=== PATIENT | male | born 1940 | race Caucasian/White ===

== ENCOUNTER → 2016-04-08 | Outpatient (CLI) | payer MEDICARE | END | disposition home or self-care (01) | LOC: PCVCCLINIC 14:00 | PROVIDERS: ATTEND Internal Medicine Cardiovascular Disease | DX: I48.91 Unspecified atrial fibrillation (principal); R06.00 Dyspnea, unspecified; I25.10 Atherosclerotic heart disease of native coronary artery without angina pectoris; E78.00 Pure hypercholesterolemia, unspecified; I10 Essential (primary) hypertension | CPT/HCPCS: 80061; 93005; G0463 ==

== ENCOUNTER → 2016-04-09 | Outpatient (CLI) | payer MEDICARE | END | disposition home or self-care (01) | LOC: PCVCIMAG 09:01 | PROVIDERS: ATTEND Internal Medicine Cardiovascular Disease | DX: I10 Essential (primary) hypertension (principal) | CPT/HCPCS: 76770; 93975 ==

== ENCOUNTER → 2016-10-08 | Outpatient (CLI) | payer BC, MEDICARE ==
--- NOTE | 2016-10-08 14:56 | PCVCIMAG ---
APPROVED REPORT Study performed: 10/08/2016 10:46:12 EXAM: Comprehensive 2D, Doppler, and color-flow Echocardiogram Patient Location: Echo lab Status: routine Other Information Study Quality: Adequate Indications Atrial Fibrillation Dyspnea CAD 2D Dimensions LVEF(%): 58.99 (>50%) IVSd: 12.86 (7-11mm)LVOT Diam: 22.31 (18-24mm) LVDd: 51.39 mm PWd: 12.08 (7-11mm) LVDs: 35.23 (25-40mm) Left Atrium: 56.54 (27-40mm) Aortic Root: 36.53 mm LV Single Plane 4CH: 51.75 % LV Single Plane 2CH: 64.20 %Hwang's LVEF: 57.97 % Biplane EF: 56.0 % Volumes Left Atrial Volume (Systole) Single Plane 4CH: 137.99 mLSingle Plane 2CH: 143.63 mL LA ESV Index: 74.00 mL/m2 Aortic Valve AoV Peak Kumar.: 1.77 m/s AO Peak Gr.: 12.53 mmHgLVOT Max P.84 mmHg LVOT Max V: 0.84 m/s NORA Vmax: 1.86 cm2 Mitral Valve MV E Max Kumar.: 1.60 m/s Pulmonary Valve PV Peak Kumar.: 0.87 m/sPV Peak Gr.: 3.06 mmHg Tricuspid Valve TR Peak Kumar.: 2.70 m/s TR Peak Gr.: 29.32 mmHg Left Ventricle The left ventricle is normal size. There is normal LV segmental wall motion. Mild concentric left ventricular hypertrophy. Left ventricular systolic function is normal. The left ventricular ejection fraction is within the normal range. LVEF is >55%. This study is not technically sufficient to allow evaluation of the LV diastolic function due to atrial fibrillation. Right Ventricle The right ventricle is normal size. The right ventricular systolic function is normal. Atria Left atrium is severely dilated. Right atrium is severely dilated. Aortic Valve The Aortic valve is moderately sclerotic. No aortic regurgitation is present. There is no aortic valvular stenosis. Mitral Valve Bi-leaflet mitral valve prolapse. Moderate mitral regurgitation. There is normal mitral valve excursion. Tricuspid Valve The tricuspid valve is normal in structure. Mild to moderate tricuspid regurgitation with PAP of 40 mmHg. Pulmonic Valve The pulmonary valve is normal in structure. Mild pulmonic regurgitation. Great Vessels The aortic root is normal in size. IVC is normal in size and collapses with >50% inspiration Pericardium There is no pericardial effusion. <Conclusion> The left ventricle is normal size. Mild concentric left ventricular hypertrophy. Left ventricular systolic function is normal. The left ventricular ejection fraction is within the normal range. This study is not technically sufficient to allow evaluation of the LV diastolic function due to atrial fibrillation. The right ventricle is normal size. Left atrium is severely dilated. Right atrium is severely dilated. The Aortic valve is moderately sclerotic. Moderate mitral regurgitation. Mild to moderate tricuspid regurgitation with PAP of 40 mmHg. Bi-leaflet mitral valve prolapse. There is no pericardial effusion.
== END | disposition home or self-care (01) ==
LOC: PCVCIMAG 10:38
PROVIDERS: ATTEND Internal Medicine Cardiovascular Disease
DX: I34.0 Nonrheumatic mitral (valve) insufficiency (principal); I07.1 Rheumatic tricuspid insufficiency; I37.1 Nonrheumatic pulmonary valve insufficiency; I48.91 Unspecified atrial fibrillation; I25.10 Atherosclerotic heart disease of native coronary artery without angina pectoris; I10 Essential (primary) hypertension; E78.5 Hyperlipidemia, unspecified; I70.0 Atherosclerosis of aorta; N18.3 Chronic kidney disease, stage 3 (moderate); K21.9 Gastro-esophageal reflux disease without esophagitis; M81.0 Age-related osteoporosis without current pathological fracture; Z79.899 Other long term (current) drug therapy; Z88.0 Allergy status to penicillin; Z88.1 Allergy status to other antibiotic agents
CPT/HCPCS: 80061; 93005; 93306; G0463

== ENCOUNTER → 2017-06-11 | Outpatient (CLI) | payer BC | END | disposition home or self-care (01) | LOC: PCVCCLINIC 13:21 | DX: I25.10 Atherosclerotic heart disease of native coronary artery without angina pectoris (principal); I48.91 Unspecified atrial fibrillation; E78.00 Pure hypercholesterolemia, unspecified; I12.9 Hypertensive chronic kidney disease with stage 1 through stage 4 chronic kidney disease, or unspecified chronic kidney disease; N18.9 Chronic kidney disease, unspecified; K21.9 Gastro-esophageal reflux disease without esophagitis; I51.7 Cardiomegaly; I34.0 Nonrheumatic mitral (valve) insufficiency; R94.31 Abnormal electrocardiogram [ECG] [EKG]; Z79.899 Other long term (current) drug therapy; Z88.0 Allergy status to penicillin | CPT/HCPCS: 80061; 93005; G0463 ==

== ENCOUNTER → 2017-12-12 | Outpatient (CLI) | payer BC ==
--- NOTE | 2017-12-12 14:23 | PCVCIMAG ---
APPROVED REPORT Study performed: 12/12/2017 12:38:03 EXAM: Comprehensive 2D, Doppler, and color-flow Echocardiogram Patient Location: Echo lab Status: routine BSA: 2.08 HR: 55 bpmBP: 130/70 mmHg Rhythm: Atrial Fibrillation Other Information Study Quality: Adequate Indications Mitral Valve Disease Mitral Valve Prolapse Atrial Fibrillation 2D Dimensions IVSd: 10.33 (7-11mm)LVOT Diam: 21.30 (18-24mm) LVDd: 51.68 mm PWd: 10.02 (7-11mm) LVDs: 36.54 (25-40mm) Left Atrium: 46.68 (27-40mm) Aortic Root: 35.21 mm LV Single Plane 4CH: 54.48 % LV Single Plane 2CH: 56.82 % Biplane EF: 53.5 % Volumes Left Atrial Volume (Systole) Single Plane 4CH: 135.83 mLSingle Plane 2CH: 149.03 mL LA ESV Index: 70.00 mL/m2 Aortic Valve AoV Peak Kumar.: 2.29 m/s AO Peak Gr.: 20.63 mmHgLVOT Max P.67 mmHg AO Mean Gr.: 10.28 mmHgLVOT Mean P.58 mmHg AO V2 Mean: 1.48 m/sLVOT Max V: 1.04 m/s AO V2 VTI: 50.39 cmLVOT Mean V: 0.77 m/s NORA (VTI): 1.91 [id number] V1 VTI: 26.98 cm NORA Vmax: 1.62 cm2 SV (LVOT): 96.07 mL Mitral Valve MV Peak Gr.: 13.22 mmHg MV Mean Gr.: 3.30 mmHg MV Max Kumar.: 1.82 m/s MV Mean Kumar.: 0.76 m/s MV VTI: 480.87 mm MVA VTI: 199.77 mm2 MV PHT: 130.88 ms MVA (PHT): 1.68 cm2 Pulmonary Valve PV Peak Kumar.: 0.86 m/sPV Peak Gr.: 3.00 mmHg Tricuspid Valve TR Peak Kumar.: 3.19 m/s TR Peak Gr.: 40.88 mmHg Left Ventricle The left ventricle is normal size. There is normal LV segmental wall motion. There is normal left ventricular wall thickness. Left ventricular systolic function is normal. The left ventricular ejection fraction is within the normal range. LVEF is 55%. This study is not technically sufficient to allow evaluation of the LV diastolic function due to atrial fibrillation. Right Ventricle The right ventricle is normal size. The right ventricular systolic function is normal. Atria Left atrium is severely dilated. Right atrium is severely dilated. Aortic Valve The aortic valve is moderately calcified. No aortic regurgitation is present. There is mild valvular aortic stenosis. Calculated aortic valve area is 1.6 cm2 with maximum pressure gradient of 21 mmHg and mean pressure gradient of 10 mmHg. Mitral Valve Mitral valve prolapse present with moderate mitral annular calcification. Moderate mitral regurgitation. No evidence of mitral valve stenosis. Tricuspid Valve The tricuspid valve is normal in structure. Moderate tricuspid regurgitation with PAP of 51 mmHg. Pulmonic Valve The pulmonary valve is normal in structure. Mild pulmonic regurgitation. Great Vessels The aortic root is normal in size. IVC is normal in size and collapses >50% with inspiration. Pericardium There is no pericardial effusion. There is no pleural effusion. <Conclusion> The left ventricle is normal size. LVEF is 55%. This study is not technically sufficient to allow evaluation of the LV diastolic function due to atrial fibrillation. The right ventricle is normal size. Left atrium is severely dilated. Right atrium is severely dilated. The aortic valve is moderately calcified. There is mild valvular aortic stenosis. Calculated aortic valve area is 1.6 cm2 with maximum pressure gradient of 21 mmHg and mean pressure gradient of 10 mmHg. Mitral valve prolapse present with moderate mitral annular calcification. Moderate mitral regurgitation. Moderate tricuspid regurgitation with PAP of 51 mmHg. The aortic root is normal in size. There is no pericardial effusion.
== END | disposition home or self-care (01) ==
LOC: PCVCIMAG 12:53
PROVIDERS: ATTEND Internal Medicine Cardiovascular Disease
DX: I08.3 Combined rheumatic disorders of mitral, aortic and tricuspid valves (principal); I25.10 Atherosclerotic heart disease of native coronary artery without angina pectoris; I48.91 Unspecified atrial fibrillation; I10 Essential (primary) hypertension
CPT/HCPCS: 93306

== ENCOUNTER → 2018-09-09 | Outpatient (CLI) | payer BC | END | disposition home or self-care (01) | LOC: PCVCCLINIC 11:30 | PROVIDERS: ATTEND Internal Medicine Cardiovascular Disease | DX: I48.91 Unspecified atrial fibrillation (principal); I25.10 Atherosclerotic heart disease of native coronary artery without angina pectoris; I34.0 Nonrheumatic mitral (valve) insufficiency; I12.9 Hypertensive chronic kidney disease with stage 1 through stage 4 chronic kidney disease, or unspecified chronic kidney disease; N18.3 Chronic kidney disease, stage 3 (moderate); K21.9 Gastro-esophageal reflux disease without esophagitis | CPT/HCPCS: 36415; 80061; 93005; G0463 ==